=== PATIENT | female | born 1980 | race Two or more races ===

== ENCOUNTER → 2017-03-09 | Outpatient (CLI) | payer SELFPAY ==
[2017-03-09 16:21] LABS: ABSOLUTE EOSINOPHILS # (AUTO) 1.5 10^3/uL (0.0-0.6); ABSOLUTE LYMPHOCYTES (AUTO) 3.2 10^3/uL (0.5-4.7); ABSOLUTE MONOCYTES (AUTO) 0.4 10^3/uL (0.1-1.4); BASOPHILS % (AUTO) 0.3 % (0-2); HEMOGLOBIN 14.1 g/dL (12.0-15.5); HGB HCT DIFFERENCE 0.3; LYMPHOCYTES % (AUTO) 31.4 % (13-45); MEAN CORPUSCULAR HEMOGLOBIN 30.2 pg (27.0-33.4); MEAN CORPUSCULAR HGB CONC 33.6 g/dL (32.0-36.0); MEAN CORPUSCULAR VOLUME 90 fl (80-97); MONOCYTES % (AUTO) 4.3 % (3-13); RED BLOOD COUNT 4.68 10^6/uL (3.72-5.28); RED CELL DISTRIBUTION WIDTH 14.3 % (11.5-14.0); WHITE BLOOD COUNT 10.2 10^3/uL (4.0-10.5)
[2017-03-09 16:42] LABS: ALANINE AMINOTRANSFERASE 23 U/L (9-52); ALKALINE PHOSPHATASE 74 U/L (38-126); ANION GAP 11 (5-19); ASPARTATE AMINO TRANSFERASE 15 U/L (14-36); BILIRUBIN,DIRECT 0.2 mg/dL (0.0-0.4); BILIRUBIN,TOTAL 0.5 mg/dL (0.2-1.3); BLOOD UREA NITROGEN 10 mg/dL (7-20); CALCIUM 9.2 mg/dL (8.4-10.2); CARBON DIOXIDE 24 mmol/L (22-30); CHLORIDE 104 mmol/L (98-107); CREATININE RESULT 0.63 mg/dL (0.52-1.25); GLUCOSE 100 mg/dL (75-110); LIPASE 93.8 U/L (23-300); POTASSIUM 3.7 mmol/L (3.6-5.0); SODIUM 138.9 mmol/L (137-145); TOTAL PROTEIN 6.9 g/dL (6.3-8.2)
== END ==
LOC: OD 15:08
PROVIDERS: ATTEND Nurse Practitioner Acute Care
DX: R10.84 Generalized abdominal pain (principal)
CPT/HCPCS: 36415; 80053; 83690; 85025

== ENCOUNTER → 2017-12-30 | Outpatient (CLI) | payer SELFPAY ==
[2017-12-30 15:30] LABS: BACTERIA (WET MOUNT) 4+ BACTERIA SEEN; EPITHELIALS (WET MOUNT) 4+ EPITHELIALS SEEN; T.VAGINALIS (WET MOUNT) NO TRICHOMONAS SEEN; WBCS (WET MOUNT) 1+ WBCS SEEN; YEAST (WET MOUNT) NO YEAST SEEN
[2017-12-30 17:02] LABS: CHLAM PCR NOT DETECTED (NOT DETECT); GON PCR NOT DETECTED (NOT DETECT)
== END ==
LOC: LAB 15:25
PROVIDERS: ATTEND Nurse Practitioner Acute Care
DX: R30.0 Dysuria (principal)
CPT/HCPCS: 87210; 87491; 87591

== ENCOUNTER → 2020-10-09 | Outpatient (CLI) | payer SELFPAY ==
--- NOTE | 2020-10-10 13:23 | RADIOLOGY REPORT (SQ) ---
EXAM DESCRIPTION: U/S [id number] TRNABD 1GES W/ODOP IMAGES COMPLETED DATE/TIME: 10/09/2020 3:20 pm REASON FOR STUDY: ENCOUNTER FOR SUPERVISION OF OTHER NORMAL , FIRST TRIMESTER Z34.81 ENCOU NTER FOR SUPRVSN OF NORMAL , FIRST TRIM COMPARISON: None. TECHNIQUE: Transabdominal static and realtime grayscale images acquired of the pelvis. Additional se lected spectral and color Doppler images recorded. All images stored on PACs. bHCG: Not available. CLINICAL DATES: 14 weeks, 1 day LIMITATIONS: None. FINDINGS: FETUS: Single Living intrauterine . ULTRASOUND EGA: 13 weeks, 1 day ULTRASOUND JAIME: 04/15/2021 EFW: Not applicable less than 20 weeks. CRL: 7.0 cm FHR: 165 beats per minute. SURVEY: Too early to assess. AMNIOTIC FLUID: Adequate amount. PLACENTA: Not yet developed due to early gestation. SUBCHORIONIC BLEED: No. SIZE OF BLEED: Not applicable. UTERUS: No masses. No anomalies. CERVICAL LENGTH: 3.9 cm Closed. RIGHT ADNEXA: Ovary not identified due to poor acoustical window. No adnexal free fluid. No adnexal masses. LEFT ADNEXA: Normal ovary with normal vascular flow. No adnexal free fluid. No adnexal masses. Incidental note is made of a probable corpus luteum. FREE FLUID: None. OTHER: No other significant finding. IMPRESSION: LIVING INTRAUTERINE . EGA 13 weeks, 1 day Trimester of : Second trimester - 13 weeks 1 day to 27 weeks 6 days. TECHNICAL DOCUMENTATION: JOB ID: [id number] [employer]- All Rights Reserved rev Reading location - IP/workstation name: [email or web address]
== END ==
LOC: RAD 14:55
PROVIDERS: ATTEND Midwife
DX: Z34.81 Encounter for supervision of other normal pregnancy, first trimester (principal); Z3A.13 13 weeks gestation of pregnancy
CPT/HCPCS: 76801